=== PATIENT | male | born 1975 | race Two or more races ===

== ENCOUNTER 2020-08-16 14:49 | Emergency (ER) | payer OTHER ==
[~2020-08-16] VITALS: Ht 175.3 cm; Wt 93.8 kg
--- NOTE | 2020-08-16 14:57 | NUR ---
EKG in triage.
--- NOTE | 2020-08-16 15:21 | NUR ---
PT SITTING UP IN [facility], NAD NOTED. PT REPORTS SUDDEN ONSET CHEST PRESSURE AFTER CONFRONTATION AT WORK THIS AFTERNOON. PT REPORTS CHEST PAIN LASTED "SECONDS" AND WAS FOLLOWED UP WITH INTENSE PRESSURE IN HIS EYES, HEAD, AND HANDS- "IT FELT LIKE I COULD FEEL MY HEART RATE EVERYWHERE" WHICH HAS SINCE EASED. PT WENT TO INITALLY AND WAS TOLD HE HAD A NEW RBBB AND WAS SENT TO ED FOR CONTINUED WORK UP. PT PWD; BP/SPO2/ECG MONITORINGIN PLACE. NSR ON MONITOR, HR 90-105. IV ESTABLISHED, LABS DRAWN.
[2020-08-16] MEDS ORDERED: ASPIRIN 81 MG TABLET CHEW PO ONE (15:30)
[2020-08-16] MEDS ORDERED: ASPIRIN 81 MG TABLET CHEW ONE (15:33)
[2020-08-16 16:08] LABS: BASOPHILS % (AUTO) 1 % (0-1); EOSINOPHILS % (AUTO) 1 % (1-7); LYMPHOCYTES % (AUTO) 19 % (22-44); MEAN CORPUSCULAR HEMOGLOBIN 29.9 pg (27.5-34.5); MEAN CORPUSCULAR HGB CONC 35.4 g/dL (33.2-36.2); MEAN PLATELET VOLUME 8.6 fL (7.4-10.4); MONOCYTES % (AUTO) 6 % (2-9); NEUTROPHILS % (AUTO) 73 % (42-75); PLATELET COUNT 213 x10^3/uL (130-400); RED BLOOD COUNT 5.39 x10^6/uL (4.38-5.82); RED CELL DISTRIBUTION WIDTH 15.3 % (9.4-14.8)
[2020-08-16 16:09] LABS: MD NO
[2020-08-16 16:15] LABS: ANION GAP 9 mmol/L (5-15); CALCIUM 9.1 mg/dL (8.5-10.1); CHLORIDE 101 mmol/L (98-107); CREATININE 1.32 mg/dL (0.7-1.3)
[2020-08-16 16:19] LABS: TROPONIN I < 0.015 ng/mL (0.000-0.045)
[2020-08-16 17:09] VITALS: BP 120/69
--- NOTE | 2020-08-16 17:24 | NUR ---
DC EDUCATION PROVIDED, PT DEMONSTRATES UNDERSTANDING. PT AMBULATED STEADILY TO DC WITH RN.
== END 2020-08-16 17:25 | disposition home or self-care (01) ==
LOC: ED 17:15
DX: R07.2 Precordial pain (principal); E11.65 Type 2 diabetes mellitus with hyperglycemia; R06.02 Shortness of breath; R94.31 Abnormal electrocardiogram [ECG] [EKG]; E11.9 Type 2 diabetes mellitus without complications; E78.5 Hyperlipidemia, unspecified
CPT/HCPCS: 36415; 71045; 80048; 82040; 84484; 85025; 93005; 99285

== ENCOUNTER 2020-08-30 22:29 | Inpatient (IN) | payer OTHER ==
[~2020-08-30] VITALS: Ht 175.3 cm; Wt 91.8 kg
[2020-08-30] MEDS ORDERED: MAALOX/HYOSCYAMINE/LIDOCAINE 45 ML BTL ONE (23:23)
[2020-08-30] MEDS ORDERED: FAMOTIDINE 20 MG/2 ML ONE (23:23)
[2020-08-30] MEDS ORDERED: ONDANSETRON 2MG/ML, 2ML ONE (23:23)
--- NOTE | 2020-08-30 23:29 | NUR ---
First contact with patient: Patient presents to ER c/o epigastric pain, nausea, body aches, and chills since 299. Symptoms worsened since 2129. Currently c/o pain, nausea, and "feeling clammy." Patient is in NAD. Respirations even and unlabored.
[2020-08-30] MEDS ORDERED: MAALOX/HYOSCYAMINE/LIDOCAINE 45 ML BTL PO ONE (23:30)
[2020-08-30] MEDS ORDERED: FAMOTIDINE 20 MG/2 ML IVPush ONE (23:30)
[2020-08-30] MEDS ORDERED: ONDANSETRON 2MG/ML, 2ML IVPush ONE (23:30)
[2020-08-30] MEDS ORDERED: SODIUM CHLORIDE 0.9% 1,000ML IVBOLUS ONE (23:30)
[2020-08-30] MEDS ORDERED: SODIUM CHLORIDE FLUSH 10ML SYR IVF ONE (23:30)
[2020-08-30 23:43] LABS: BASOPHILS % (AUTO) 2 % (0-1); EOSINOPHILS % (AUTO) 0 % (1-7); LYMPHOCYTES % (AUTO) 10 % (22-44); MEAN CORPUSCULAR HEMOGLOBIN 32.6 pg (27.5-34.5); MEAN PLATELET VOLUME 8.4 fL (7.4-10.4); MONOCYTES % (AUTO) 6 % (2-9); NEUTROPHILS % (AUTO) 83 % (42-75); PLATELET COUNT 241 x10^3/uL (130-400)
--- NOTE | 2020-08-31 00:02 | NUR ---
PER LAB BLOOD IS HEMOLYZED, WILL REDRAW.
[2020-08-31 00:24] LABS: MEAN CORPUSCULAR HGB CONC 38.7 g/dL (33.2-36.2)
--- NOTE | 2020-08-31 00:33 | NUR ---
UA COLLECTED AND SENT TO LAB
[2020-08-31 00:42] LABS: MICROSCOPIC AUTO
--- NOTE | 2020-08-31 00:50 | NUR ---
PT STATES HE ISN'T FEELING BETTER AFTER MEDS, EXCEPT HIS NAUSEA IS BETTER.
[2020-08-31] MEDS ORDERED: MORPHINE SULFATE 4 MG/ML, 1ML ONE (01:02)
[2020-08-31] MEDS ORDERED: ONDANSETRON 2MG/ML, 2ML ONE (01:08)
[2020-08-31] MEDS ORDERED: MORPHINE SULFATE 4 MG/ML, 1ML IVPush PRN ×2 (01:30→04:00)
[2020-08-31] MEDS ORDERED: ONDANSETRON 2MG/ML, 2ML IVPush ONE (01:30)
[2020-08-31 02:15] LABS: CHLORIDE 97 mmol/L (98-107)
[2020-08-31 02:16] LABS: ANION GAP 15 mmol/L (5-15); CALCIUM 7.3 mg/dL (8.5-10.1); CREATININE 1.12 mg/dL (0.7-1.3)
--- NOTE | 2020-08-31 02:18 | NUR ---
PER LAB BLOOD HAS HEMOLYZED FOR THIRD TIME. SPECIFICATIONS WRITER STATES POTASSIUM HAS CHANGED WITH EACH DRAW, FIRST DRAW 5.9, SECOND DRAW 8.2, AND THIRD 9.1. LAB STATES THEY WILL RELEASE FIRST RESULTS. DIAZ NASH.
[2020-08-31 02:33] LABS: ALANINE AMINOTRANSFERASE 30 U/L (12-78)
[2020-08-31 02:36] LABS: BILIRUBIN,TOTAL 0.4 mg/dL (0.2-1.0)
[2020-08-31 02:38] LABS: ALKALINE PHOSPHATASE 56 U/L (45-117)
[2020-08-31 02:39] LABS: ALBUMIN 3.3 g/dL (3.4-5.0); TOTAL PROTEIN 8.2 g/dL (6.4-8.2)
--- NOTE | 2020-08-31 02:48 | NUR ---
report given to radha sneed
--- NOTE | 2020-08-31 02:51 | NUR ---
REPORT RECEIVED FROM ABNER ADAN
[2020-08-31 03:02] LABS: HDL CHOLESTEROL (DIRECT) 36 mg/dL (40-60)
[2020-08-31 03:09] LABS: HDL CHOL % 10 % (26-37)
[2020-08-31 03:10] LABS: TRIGLYCERIDES 861 mg/dL (50-200)
[2020-08-31 03:11] LABS: CHOLESTEROL, TOTAL 360 mg/dL (140-239)
[2020-08-31] MEDS ORDERED: LISI-170 PO (03:30)
[2020-08-31] MEDS ORDERED: INSU100I13 SQ (03:30)
[2020-08-31] MEDS ORDERED: METF500T17 PO (03:30)
[2020-08-31] MEDS ORDERED: LEVO125T85 PO (03:30)
[2020-08-31] MEDS ORDERED: OMEG-14 PO (03:30)
[2020-08-31] MEDS ORDERED: CLOM50TA17 PO (03:30)
[2020-08-31] MEDS ORDERED: EMPA10TA PO (03:30)
[2020-08-31] MEDS ORDERED: ATOR20TA86 PO (03:30)
[2020-08-31] MEDS ORDERED: FENO50CA4 PO (03:30)
[2020-08-31] MEDS ORDERED: SODIUM CHLORIDE 0.9% 1,000ML IVBOLUS ONE (03:30)
[2020-08-31] MEDS ORDERED: NS + 20MEQ KCL 1,000 ML IV SCH (04:00)
[2020-08-31] MEDS ORDERED: ONDANSETRON 2MG/ML, 2ML IVPush PRN ×2 (04:00→09:30)
--- NOTE | 2020-08-31 04:50 | NUR ---
PER ERP, STARTED MAINTENCE FLUIDS AT 125 ML/HR OF NS
--- NOTE | 2020-08-31 04:50 | NUR ---
Pt to be admitted to MEDICAL, room 337. Report called to LOCO MCKEON.
[2020-08-31 05:11] VITALS: BP 154/83
[2020-08-31 08:16] VITALS: BP 149/80
[2020-08-31] MEDS: OMEGA-3/FISH OIL CAPSULE PO SCH (09:00)
[2020-08-31] MEDS: LISINOPRIL 20 MG TABLET PO SCH (09:11)
[2020-08-31] MEDS: FENOFIBRATE 54 MG TABLET PO SCH (09:11)
[2020-08-31] MEDS: LEVOTHYROXINE 125 MCG TABLET PO SCH (09:11)
[2020-08-31 09:30] LABS: BASOPHILS % (AUTO) 1 % (0-1); EOSINOPHILS % (AUTO) 0 % (1-7); LYMPHOCYTES % (AUTO) 10 % (22-44); MEAN CORPUSCULAR HGB CONC 36.5 g/dL (33.2-36.2); MEAN PLATELET VOLUME 8.5 fL (7.4-10.4); MONOCYTES % (AUTO) 5 % (2-9); NEUTROPHILS % (AUTO) 83 % (42-75); PLATELET COUNT 207 x10^3/uL (130-400); RED BLOOD COUNT 4.87 x10^6/uL (4.38-5.82); RED CELL DISTRIBUTION WIDTH 16.3 % (9.4-14.8)
[2020-08-31] MEDS ORDERED: morphine SULFATE 10 MG/ML, 1ML IVPush PRN (09:30)
[2020-08-31] MEDS ORDERED: DEXTROSE 4 GM TAB.CHEW PO PRN (09:30)
[2020-08-31] MEDS ORDERED: LABETALOL 5MG/ML, 20ML IVPush PRN (09:30)
[2020-08-31] MEDS ORDERED: GLUCAGON 1 MG IM PRN (09:30)
[2020-08-31] MEDS ORDERED: ACETAMINOPHEN 325 MG TABLET PO PRN (09:30)
[2020-08-31] MEDS ORDERED: DEXTROSE 50%, 50ML SYRINGE IVPush PRN (09:30)
[2020-08-31 09:37] LABS: ALBUMIN 2.8 g/dL (3.4-5.0); ANION GAP 18 mmol/L (5-15); CALCIUM 7.3 mg/dL (8.5-10.1); CHLORIDE 106 mmol/L (98-107)
[2020-08-31 09:46] LABS: ALKALINE PHOSPHATASE 52 U/L (45-117); BILIRUBIN,TOTAL 0.9 mg/dL (0.2-1.0); CREATININE 0.89 mg/dL (0.7-1.3)
[2020-08-31] MEDS: ENOXAPARIN 40 MG/0.4 ML SQ SCH (10:19)
[2020-08-31 10:22] LABS: ALANINE AMINOTRANSFERASE 22 U/L (12-78); TOTAL PROTEIN 6.9 g/dL (6.4-8.2)
[2020-08-31] MEDS: INSULIN LISPRO 100 UNITS/ML, PEN SQ-INSULIN SCH ×3 (11:00→23:50)
[2020-08-31] MEDS: SODIUM CHLORIDE 0.9% 1,000 ML IV SCH ×3 (11:56→21:45)
[2020-08-31 12:26] VITALS: BP 138/73
[2020-08-31 19:43] VITALS: BP 132/70
[2020-08-31] MEDS ORDERED: ATORVASTATIN 40 MG TABLET PO SCH (21:00)
[2020-08-31] MEDS: SODIUM CHLORIDE FLUSH 10ML SYR IVF SCH (21:45)
[2020-09-01 01:51] VITALS: BP 138/69
[2020-09-01] MEDS: SODIUM CHLORIDE 0.9% 1,000 ML IV SCH ×4 (02:39→18:00)
[2020-09-01] MEDS: INSULIN LISPRO 100 UNITS/ML, PEN SQ-INSULIN SCH (05:00)
[2020-09-01 05:18] LABS: MEAN CORPUSCULAR HEMOGLOBIN 29.7 pg (27.5-34.5); MEAN CORPUSCULAR HGB CONC 34.6 g/dL (33.2-36.2); MEAN PLATELET VOLUME 8.1 fL (7.4-10.4); PLATELET COUNT 165 x10^3/uL (130-400); RED BLOOD COUNT 4.44 x10^6/uL (4.38-5.82); RED CELL DISTRIBUTION WIDTH 16.2 % (9.4-14.8)
[2020-09-01 05:29] LABS: ALBUMIN 2.5 g/dL (3.4-5.0); ANION GAP 12 mmol/L (5-15); CALCIUM 7.4 mg/dL (8.5-10.1); CHLORIDE 108 mmol/L (98-107)
[2020-09-01 05:35] LABS: ALKALINE PHOSPHATASE 48 U/L (45-117); BILIRUBIN,TOTAL 0.7 mg/dL (0.2-1.0); CREATININE 0.81 mg/dL (0.7-1.3); TOTAL PROTEIN 6.4 g/dL (6.4-8.2); TRIGLYCERIDES 813 mg/dL (50-200)
[2020-09-01 05:41] LABS: ALANINE AMINOTRANSFERASE 25 U/L (12-78)
[2020-09-01 06:45] LABS: BASOS#(MANUAL) 0.08 x10^3/uL (0-0.1); BASOS% (MANUAL) 1 % (0-1); EOS#(MANUAL) 0.08 x10^3/uL (0.0-0.4); EOS% (MANUAL) 1 % (1-7); LYMPH#(MANUAL) 1.46 x10^3/uL (1-3.4); LYMPHS% (MANUAL) 19 % (22-44); MONOS#(MANUAL) 0.85 x10^3/uL (0.3-2.7); MONOS% (MANUAL) 11 % (2-9); REACTIVE LYMPHS # (MANUAL) 0.08 x10^3/uL (0-0); REACTIVE LYMPHS % (MANUAL) 1 % (0-0); SEG#(MANUAL) 5.16 x10^3/uL (1.8-6.8); SEGS% (MANUAL) 67 % (42-75)
[2020-09-01 06:47] LABS: <PLATELET ESTIMATE> ADEQUATE; <PLT MORPHOLOGY> NORMAL PLT MORPH; <RBC MORPHOLOGY> NORMAL
[2020-09-01 06:51] VITALS: BP 133/72
[2020-09-01] MEDS: LEVOTHYROXINE 125 MCG TABLET PO SCH (08:19)
[2020-09-01] MEDS: OMEGA-3/FISH OIL CAPSULE PO SCH (08:19)
[2020-09-01] MEDS: LISINOPRIL 20 MG TABLET PO SCH (08:19)
[2020-09-01] MEDS: FENOFIBRATE 54 MG TABLET PO SCH (08:19)
[2020-09-01] MEDS: SODIUM CHLORIDE FLUSH 10ML SYR IVF SCH (10:36)
[2020-09-01] MEDS ORDERED: INSULIN LISPRO 100 UNITS/ML, PEN SQ-INSULIN SCH (11:00)
[2020-09-01] MEDS: ENOXAPARIN 40 MG/0.4 ML SQ SCH (11:59)
[2020-09-01 13:00] VITALS: BP_SYST 121; BP_SYST 130; BP_DIAS 67; BP_DIAS 74
== END 2020-09-01 18:16 | disposition home or self-care (01) | DRG 439 ==
LOC: ED 23:08 → EDIP 08-31 04:18 → 3N 08-31 05:08 → 4WST 08-31 07:48
PROVIDERS: ADMIT Internal Medicine; ATTEND Internal Medicine
DX: K85.90 Acute pancreatitis without necrosis or infection, unspecified (principal); E87.1 Hypo-osmolality and hyponatremia; E03.9 Hypothyroidism, unspecified; E11.9 Type 2 diabetes mellitus without complications; E78.1 Pure hyperglyceridemia; E78.5 Hyperlipidemia, unspecified; E87.5 Hyperkalemia; I10 Essential (primary) hypertension; N20.0 Calculus of kidney; Z82.49 Family history of ischemic heart disease and other diseases of the circulatory system; Z83.3 Family history of diabetes mellitus; Z87.442 Personal history of urinary calculi; Z88.8 Allergy status to other drugs, medicaments and biological substances
CPT/HCPCS: 36415; 76700; 80053; 80061; 81001; 82150; 82962; 83690; 83735; 84100; 84443; 84478; 85025; 93005; 96374; 96375; G0378; J1650; J2405; J2270; J7030